=== PATIENT | male | born 1960 | race Caucasian/White ===

== ENCOUNTER 2019-03-09 14:28 | Emergency (ER) | payer SELFPAY ==
[~2019-03-09] VITALS: Ht 157.5 cm; Wt 73.0 kg
[2019-03-09] MEDS ORDERED: LORAZEPAM 2MG/ML CPJ IV STA (18:38)
[2019-03-09 18:54] LABS: BASOPHILS % 0.9 % (0.0-2.0); EOSINOPHILS % 1.4 % (0.0-5.0); HEMATOCRIT. 44.7 % (42.0-52.0); HEMOGLOBIN. 14.3 g/dL (14.0-18.0); LYMPHOCYTES % 28.3 % (20.0-50.0); MEAN CORPUSCULAR HEMOGLOBIN 23.4 pg (28.0-32.0); MEAN CORPUSCULAR VOLUME 73.2 fL (80.0-94.0); MEAN PLATELET VOLUME 8.9 fl (7.4-10.4); MONOCYTES % 5.1 % (2.0-8.0); NEUTROPHILS % 64.3 % (40.0-76.0); PLATELET 326 x1000/uL (130-400); RED BLOOD CELL COUNT 6.11 mill/uL (4.7-6.1); RED CELL DISTRIBUTION WIDTH 14.5 % (11.6-14.6)
[2019-03-09 18:57] LABS: CHLORIDE 107 mEq/L (98-107)
[2019-03-09 19:05] LABS: ETHANOL BLOOD < 10 mg/dL
[2019-03-10 07:25] VITALS: BP 120/81
== END 2019-03-10 08:39 | disposition home or self-care (01) ==
LOC: ER 14:28
DX: F32.9 Major depressive disorder, single episode, unspecified (principal); R45.851 Suicidal ideations; Z90.49 Acquired absence of other specified parts of digestive tract
CPT/HCPCS: 36415; 71045; 80053; 80320; 83880; 84443; 84484; 85025; 93005; 99284; Z7610; G0480

== ENCOUNTER 2021-03-27 19:31 | Emergency (ER) | payer MEDICAID ==
[~2021-03-27] VITALS: Ht 157.5 cm; Wt 70.0 kg
[2021-03-27] MEDS ORDERED: MECLIZINE 25MG TABLET PO ONE (21:30)
[2021-03-27] MEDS ORDERED: ONDANSETRON HCL 4MG/2ML INJ IV ONE (21:30)
[2021-03-27 22:11] LABS: BASOPHILS % 0.5 % (0.0-2.0); EOSINOPHILS % 1.6 % (0.0-5.0); HEMATOCRIT. 43.5 % (42.0-52.0); HEMOGLOBIN. 14.1 g/dL (14.0-18.0); LYMPHOCYTES % 31.5 % (20.0-50.0); MEAN CORPUSCULAR HEMOGLOBIN 23.7 pg (28.0-32.0); MEAN CORPUSCULAR VOLUME 72.8 fL (80.0-94.0); MEAN PLATELET VOLUME 8.9 fl (7.4-10.4); MONOCYTES % 5.4 % (2.0-8.0); PLATELET 293 x1000/uL (130-400); RED BLOOD CELL COUNT 5.97 mill/uL (4.7-6.1); RED CELL DISTRIBUTION WIDTH 14.3 % (11.6-14.6)
[2021-03-27 22:16] LABS: CHLORIDE 105 mEq/L (98-107)
[2021-03-28 03:10] VITALS: BP 133/82
== END 2021-03-28 03:20 | disposition home or self-care (01) ==
LOC: ER 19:31
DX: R42 Dizziness and giddiness (principal); R53.1 Weakness; H93.12 Tinnitus, left ear
CPT/HCPCS: 36415; 70450; 71045; 80053; 83880; 84484; 85025; 93005; 96374; 99285; J2405; J8597

== ENCOUNTER 2021-04-14 16:43 | Emergency (ER) | payer MEDICAID, OTHER ==
[~2021-04-14] VITALS: Ht 157.5 cm; Wt 66.0 kg
[2021-04-14] MEDS ORDERED: MECLIZINE 12.5MG TABLET PO ONE (17:15)
[2021-04-14] MEDS ORDERED: PROCHLORPERAZINE MALEATE 10MG TABLET PO ONE (17:15)
[2021-04-14] MEDS ORDERED: PROC5TAB55 MT (17:28)
[2021-04-14] MEDS ORDERED: MECL-217 MT (17:28)
[2021-04-14 18:33] VITALS: BP 125/98
== END 2021-04-14 18:35 | disposition home or self-care (01) ==
LOC: ER 16:43
DX: R42 Dizziness and giddiness (principal); R11.0 Nausea; Z76.0 Encounter for issue of repeat prescription
CPT/HCPCS: 99283; J8597; Q0164

== ENCOUNTER 2022-01-02 07:37 | Emergency (ER) | payer MEDICAID, OTHER ==
[~2022-01-02] VITALS: Ht 157.5 cm; Wt 70.0 kg
[~2022-01-02 07:37] MED LIST: MECL-217 MT; PROC5TAB55 MT
[2022-01-02] MEDS ORDERED: TOPUD PO (09:04)
[2022-01-02 09:36] VITALS: BP 145/85
== END 2022-01-02 09:37 | disposition home or self-care (01) ==
LOC: ER 07:37
DX: R07.81 Pleurodynia (principal); R03.0 Elevated blood-pressure reading, without diagnosis of hypertension
CPT/HCPCS: 71111; 99283

== ENCOUNTER 2024-05-27 13:43 | Emergency (ER) | payer MEDICAID, OTHER ==
[~2024-05-27] VITALS: Ht 162.6 cm; Wt 60.0 kg
[~2024-05-27 13:43] MED LIST changes: +TOPUD PO
[2024-05-27 13:55] VITALS: O2SAT 97
[2024-05-27] MEDS ORDERED: ERYT1OIN6 RIGHTEYE (14:35)
[2024-05-27 16:30] VITALS: BP 140/95; PULSE 88; RESP 18; TEMP 98.2
== END 2024-05-27 16:31 | disposition home or self-care (01) ==
LOC: ER 13:43
DX: H11.31 Conjunctival hemorrhage, right eye (principal); F41.9 Anxiety disorder, unspecified; Z88.0 Allergy status to penicillin; Z88.8 Allergy status to other drugs, medicaments and biological substances
CPT/HCPCS: 99283; Z7610

== ENCOUNTER 2025-07-21 08:20 | Emergency (ER) | payer MEDICAID, OTHER ==
[~2025-07-21] VITALS: Ht 167.6 cm; Wt 70.0 kg
[~2025-07-21 08:20] MED LIST changes: +ERYT1OIN6 RIGHTEYE
[2025-07-21 08:36] VITALS: O2SAT 98
[2025-07-21] MEDS ORDERED: ACETAMINOPHEN 325MG TABLET PO ONE (09:00)
[2025-07-21] MEDS: ACETAMINOPHEN 325MG TABLET PO NR (09:45)
[2025-07-21 09:51] VITALS: BP 129/85; PULSE 87; RESP 16; TEMP 36.8; O2SAT 97
== END 2025-07-21 09:57 | disposition home or self-care (01) ==
LOC: ER 08:20
DX: M79.671 Pain in right foot (principal); M79.672 Pain in left foot; F41.9 Anxiety disorder, unspecified; Z88.0 Allergy status to penicillin
CPT/HCPCS: 73630; 99283

== ENCOUNTER 2025-09-07 13:34 | Emergency (ER) | payer OTHER ==
[~2025-09-07] VITALS: Ht 167.6 cm; Wt 86.0 kg
[2025-09-07 13:59] VITALS: O2SAT 98
[2025-09-07] MEDS ORDERED: LIDO700A30 TP (17:02)
[2025-09-07] MEDS ORDERED: DICL100G46 TP (17:02)
[2025-09-07 17:33] VITALS: BP 128/81; PULSE 86; RESP 16; TEMP 36.7; O2SAT 100
[2025-09-07] MEDS: LIDOCAINE 5% PATCH TOP STA (17:33)
== END 2025-09-07 17:41 | disposition home or self-care (01) ==
LOC: ER 13:34
DX: R07.89 Other chest pain (principal); Z88.0 Allergy status to penicillin; W19.XXXA Unspecified fall, initial encounter; Y93.K1 Activity, walking an animal; Y92.89 Other specified places as the place of occurrence of the external cause; Y99.8 Other external cause status
CPT/HCPCS: 71111; 99283